=== PATIENT | male | born 1995 | race Caucasian/White ===

== ENCOUNTER 2019-06-09 16:46 | Emergency (ER) | payer SELFPAY ==
[~2019-06-09] VITALS: Ht 175.3 cm; Wt 73.0 kg
[2019-06-09] MEDS ORDERED: ACET-66 PO (16:48)
[2019-06-09] MEDS ORDERED: PHEN-748 PO (16:48)
[2019-06-09 16:51] VITALS: BP 116/76
[2019-06-09] MEDS ORDERED: ACETAMINOPHEN 500 MG TABLET PO ONE (17:15)
[2019-06-09] MEDS ORDERED: IBUPROFEN 600 MG TABLET PO ONE (17:15)
== END 2019-06-09 17:40 | disposition home or self-care (01) ==
LOC: EMS 16:55
DX: J02.9 Acute pharyngitis, unspecified (principal); Z20.828 Contact with and (suspected) exposure to other viral communicable diseases
CPT/HCPCS: 87635